=== PATIENT | female | born 1955 | race Caucasian/White ===

== ENCOUNTER → 2016-10-20 | Outpatient (CLI) | payer OTHER | LOC: FIMAGING 16:15 | PROVIDERS: ATTEND Internal Medicine | DX: Z12.31 Encounter for screening mammogram for malignant neoplasm of breast (principal) | CPT/HCPCS: G0202 ==

== ENCOUNTER 2017-01-24 08:14 | Day surgery (SDC) | payer OTHER ==
[2017-01-24] MEDS ORDERED: LIDOCAINE 1% 300 MG/30 ML SDV ONE (08:35)
[2017-01-24] MEDS ORDERED: LIDOCAINE 1% 300 MG/30 ML SDV IF ONE (08:45)
--- NOTE | 2017-01-24 10:29 | CPIP ---
[f rep st] INVASIVE CARDIAC PROCEDURE Corrected report DATE OF PROCEDURE: 01/24/2017 PROCEDURE PERFORMED: [employer]tronic implantable loop recorder. INDICATION FOR PROCEDURE: History of syncope, with negative tilt table test. PROCEDURE: After informed consent was obtained, the patient was brought to the cardiovascular procedure suite where she was prepped and draped in a sterile fashion. Using 1% lidocaine, the 5th intercostal space, 2 cm from midline was anesthetized. Once appropriate level of local anesthesia was obtained, incision was made with Med[employer] scalpel provided in the loop recorder kit. This incision was slightly enhanced with a scalpel blade as well. The implantable loop recorder was inserted under the skin without complication. Hemostasis was achieved. The patient tolerated the procedure well. Steri- Strips were placed, and sterile dressing with Tegaderm was applied. Again, she tolerated the procedure well without complications. Currently, at the time of this dictation, device is being interrogated to assess for P waves. PLAN: 1. Patient will be discharged home shortly after device interrogation. 2. Patient has been given postoperative instructions. 3. Patient is scheduled to follow up in our office next week for a device and wound check. /[id number]/MODL Timi worktype, 01/24/17, [place]
== END 2017-01-24 10:00 | disposition home or self-care (01) ==
LOC: FCATH 08:14
PROVIDERS: ATTEND Internal Medicine Cardiovascular Disease
PROC: 0JH60PZ Insertion of Cardiac Rhythm Related Device into Chest Subcutaneous Tissue and Fascia, Open Approach (ICD-10-PCS; principal; 2017-01-24)
DX: R55 Syncope and collapse (principal)
CPT/HCPCS: C1764